=== PATIENT | female | born 1935 | race Caucasian/White ===

== ENCOUNTER 2018-04-12 01:09 | Inpatient (IN) | payer MEDICARE, OTHER ==
[2018-04-12] VITALS (16 sets, daily range): BP systolic 124–155; BP diastolic 52–89
[~2018-04-12] VITALS: Ht 157.5 cm; Wt 59.0 kg
[~2018-04-12 01:09] MED LIST: IBUP-1985 PO
[2018-04-12] MEDS ORDERED: acetaminophen 325mg tablet PO ONE (02:00)
[2018-04-12] MEDS ORDERED: normal saline 1000ml 1,000 ML IV ONE (02:50)
[2018-04-12] MEDS ORDERED: LOSA25TA96 PO (03:00)
[2018-04-12] MEDS ORDERED: AMLO2.5T2 PO (03:00)
[2018-04-12 03:03] LABS: ALANINE AMINOTRANSFERASE 36 U/L (12-78); ALBUMIN 3.6 G/DL (3.4-5.0); ALBUMIN/GLOBULIN RATIO 1.2 (1.1-1.5); ALKALINE PHOSPHATASE 73 IU/L (46-116); ANION GAP 10 (8-16); ASPARTATE AMINO TRANSFERASE 41 U/L (10-37); BILIRUBIN,TOTAL 0.2 MG/DL (0.1-1.0); BLOOD UREA NITROGEN 20 MG/DL (7-18); BUN/CREATININE RATIO 18.5 (6.6-38.0); CALCIUM 8.3 MG/DL (8.5-10.1); CHLORIDE 106 MMOL/L (99-107); CREATININE 1.08 MG/DL (0.40-0.90); GLUCOSE 103 MG/DL (70-104); POTASSIUM 3.8 MMOL/L (3.5-5.1); SODIUM 138 MMOL/L (135-145); TOTAL CARBON DIOXIDE 21.6 MMOL/L (24-32); TOTAL PROTEIN 6.5 G/DL (6.4-8.2); eGFR 48 ML/MIN
[2018-04-12] MEDS: normal saline 1000ml 1,000 ML IV SCH ×2 (03:07→16:37)
[2018-04-12 03:10] LABS: BASOPHILS % (AUTO) 0.1 % (0-1); EOSINOPHILS # (AUTO) 0.3 X10'3 (0-0.9); EOSINOPHILS % (AUTO) 2.2 % (0-6); LYMPHOCYTES # (AUTO) 1.4 X10'3 (1.1-4.8); LYMPHOCYTES % (AUTO) 9.8 % (21-51); MEAN CORPUSCULAR HEMOGLOBIN 31.2 PG (27.0-31.0); MEAN CORPUSCULAR HGB CONC 34.2 % (33.0-36.5); MEAN CORPUSCULAR VOLUME 91.2 FL (78-98); MEAN PLATELET VOLUME 8.2 FL (7.4-10.4); MONOCYTES # (AUTO) 0.6 X10'3 (0-0.9); MONOCYTES % (AUTO) 4.4 % (2-12); NEUTROPHILS # (AUTO) 12.2 X10'3 (1.8-7.7); NEUTROPHILS % (AUTO) 83.5 % (42-75); PLATELET COUNT 269 X10'3 (140-440); RED BLOOD COUNT 3.51 X10'6 (4.20-5.60); RED CELL DISTRIBUTION WIDTH 14.7 % (11.5-14.5); WHITE BLOOD COUNT 14.7 X10'3 (4.5-11.0)
[2018-04-12] MEDS ORDERED: bacitracin 15gm ointment TP ONE (03:10)
[2018-04-12] MEDS ORDERED: mag hydrox/Alum hydrox/simeth 30ml oral suspension PO PRN (03:10)
[2018-04-12] MEDS ORDERED: magnesium hydroxide 30ml (MOM) UD suspension PO PRN (03:10)
[2018-04-12] MEDS ORDERED: acetaminophen 325mg tablet PO PRN (03:10)
[2018-04-12] MEDS ORDERED: ondansetron/PF 4mg/2ml inj IV PRN ×2 (03:10→14:40)
[2018-04-12] MEDS ORDERED: morphine 4 MG/ML inj SYRINge IV PRN ×3 (03:10→14:40)
[2018-04-12 04:25] LABS: CLARITY,URINE Clear (Clear); COLOR,URINE Yellow (Yellow); GLUCOSE, URINE Negative (Neg); KETONES,URINE Negative (Neg); LEUKOCYTE ESTERASE ,URINE Negative (Neg); NITRITES, URINE Negative (Neg); OCCULT BLOOD,URINE Negative (Neg); PH,URINE 6.5 (4.8-8.0); PROTEIN,URINE Negative (Neg)
[2018-04-12 04:26] LABS: UA COLLECTION TYPE FOLEY CATH
[2018-04-12] MEDS: morphine 4 MG/ML inj SYRINge IV PRN ×3 (04:31→16:38)
[2018-04-12] MEDS: amLODIPine 2.5mg tablet PO SCH (06:28)
[2018-04-12] MEDS: enoxaparin 40mg/0.4ml syringe SUBCUT SCH (06:28)
[2018-04-12] MEDS: losartan 25mg tablet PO SCH (06:28)
[2018-04-12 11:23] LABS: PARTIAL THROMBOPLASTIN TIME 26 SECONDS (22-32)
[2018-04-12] MEDS ORDERED: EPHEDRINE SULFATE/0.9% NACL/PF 50 MG/5 ML ML IJ ONE (12:22)
[2018-04-12] MEDS ORDERED: sevoflurane 250ml liquid IH ONE (12:22)
[2018-04-12] MEDS ORDERED: midazolam 2 mg/2 ml injection ONE (12:30)
[2018-04-12] MEDS ORDERED: fentaNYL/PF 50MCG/1 ML 2ML syringe ONE (12:30)
[2018-04-12] MEDS ORDERED: propofol inj 20 ML IV ONE (12:52)
[2018-04-12] MEDS ORDERED: LIDOcaine 2% (20mg/ml) 5ml vial ONE (12:52)
[2018-04-12] MEDS ORDERED: vancomycin 1,000mg inj ONE (12:52)
[2018-04-12] MEDS ORDERED: ceFAZolin 1000mg inj ONE ×2 (12:52)
[2018-04-12] MEDS: meperidine/PF 25mg/ml syringe IV PRN ×4 (14:20→16:12)
[2018-04-12] MEDS ORDERED: meperidine/PF 25mg/ml syringe ONE (14:38)
[2018-04-12] MEDS ORDERED: ringers solution, lacted 1,000 ML IV SCH (14:39)
[2018-04-12] MEDS ORDERED: proCHLORperazine 10 MG/2 ml inj IV PRN (14:40)
[2018-04-12] MEDS ORDERED: meperidine/PF 25mg/ml syringe IV PRN ×2 (14:40)
[2018-04-12] MEDS: CEFAZOLIN IV SCH ×2 (16:35→23:04)
[2018-04-12] MEDS: NORMAL SALINE IV SCH ×2 (16:35→23:04)
[2018-04-12] MEDS ORDERED: haloperidol lactate 5mg/ml inj IM PRN (18:35)
[2018-04-12] MEDS ORDERED: LORazepam 2 mg/ml vial IV PRN (18:35)
[2018-04-12] MEDS ORDERED: thiamine 100mg/ml 2ml inj. IV ONE (18:35)
[2018-04-12] MEDS ORDERED: dextrose 50%-water 50ml dispensing syringe IV PRN (18:35)
[2018-04-12] MEDS ORDERED: thiamine inj. 100 MG in normal saline 100ml IV soln 99 ML IV ONE (18:45)
[2018-04-12] MEDS: oxyCODONE/APAP 10/325mg tablet PO PRN ×2 (19:02→23:04)
[2018-04-13] MEDS: morphine 4 MG/ML inj SYRINge IV PRN (02:25)
[2018-04-13] MEDS: normal saline 1000ml 1,000 ML IV SCH ×3 (02:25→15:51)
[2018-04-13 02:27] VITALS: BP 116/69
[2018-04-13 02:39] LABS: BASOPHILS % (AUTO) 0.4 % (0-1); EOSINOPHILS # (AUTO) 0.1 X10'3 (0-0.9); EOSINOPHILS % (AUTO) 1.5 % (0-6); HEMATOCRIT 26.2 % (35.0-45.0); HEMOGLOBIN 8.9 g/dl (12.0-16.0); LYMPHOCYTES # (AUTO) 1.1 X10'3 (1.1-4.8); LYMPHOCYTES % (AUTO) 14.5 % (21-51); MEAN CORPUSCULAR HEMOGLOBIN 31.1 PG (27.0-31.0); MEAN CORPUSCULAR HGB CONC 34.1 % (33.0-36.5); MEAN CORPUSCULAR VOLUME 91.2 FL (78-98); MEAN PLATELET VOLUME 8.2 FL (7.4-10.4); MONOCYTES % (AUTO) 13.8 % (2-12); NEUTROPHILS # (AUTO) 5.1 X10'3 (1.8-7.7); NEUTROPHILS % (AUTO) 69.8 % (42-75); PLATELET COUNT 240 X10'3 (140-440); RED BLOOD COUNT 2.88 X10'6 (4.20-5.60); RED CELL DISTRIBUTION WIDTH 14.4 % (11.5-14.5); WHITE BLOOD COUNT 7.3 X10'3 (4.5-11.0)
[2018-04-13 02:48] LABS: PARTIAL THROMBOPLASTIN TIME 26 SECONDS (22-32); PROTHROMBIN TIME 10.1 SECONDS (9.0-12.0)
[2018-04-13 02:50] LABS: ALBUMIN 3.1 G/DL (3.4-5.0); ANION GAP 10 (8-16); ASPARTATE AMINO TRANSFERASE 24 U/L (10-37); BILIRUBIN,TOTAL 0.6 MG/DL (0.1-1.0); BLOOD UREA NITROGEN 16 MG/DL (7-18); BUN/CREATININE RATIO 16.2 (6.6-38.0); CALCIUM 7.9 MG/DL (8.5-10.1); CHLORIDE 104 MMOL/L (99-107); CREATININE 0.99 MG/DL (0.40-0.90); GLUCOSE 127 MG/DL (70-104); POTASSIUM 4.1 MMOL/L (3.5-5.1); SODIUM 137 MMOL/L (135-145); TOTAL CARBON DIOXIDE 22.6 MMOL/L (24-32); TOTAL PROTEIN 6.1 G/DL (6.4-8.2); eGFR 54 ML/MIN
[2018-04-13 02:51] LABS: ALANINE AMINOTRANSFERASE 27 U/L (12-78); ALKALINE PHOSPHATASE 59 IU/L (46-116)
[2018-04-13] MEDS: oxyCODONE/APAP 10/325mg tablet PO PRN ×3 (05:44→16:59)
[2018-04-13 07:00] VITALS: BP 140/53
[2018-04-13] MEDS: losartan 25mg tablet PO SCH (08:08)
[2018-04-13] MEDS: amLODIPine 2.5mg tablet PO SCH (08:08)
[2018-04-13] MEDS: enoxaparin 40mg/0.4ml syringe SUBCUT SCH (08:09)
[2018-04-13] MEDS: ceFAZolin inj. 1,000 MG in normal saline 100ml IV soln 100 ML IV SCH ×3 (08:13→23:18)
[2018-04-13 10:00] VITALS: BP 117/65
[2018-04-13] MEDS: LORazepam 2 mg/ml vial IV PRN (16:59)
[2018-04-13 19:00] VITALS: BP 133/56
[2018-04-13] MEDS: lactobacillus rhamnosus 10,000 MMU CELLS/CAPSULE PO SCH (20:00)
[2018-04-13 22:00] VITALS: BP 124/46
[2018-04-14] MEDS: oxyCODONE/APAP 10/325mg tablet PO PRN ×2 (01:18→19:11)
[2018-04-14] MEDS: normal saline 1000ml 1,000 ML IV SCH (01:18)
[2018-04-14] MEDS: LORazepam 2 mg/ml vial IV PRN ×2 (03:45→19:11)
[2018-04-14 05:57] LABS: BASOPHILS % (AUTO) 0.6 % (0-1); EOSINOPHILS # (AUTO) 0.1 X10'3 (0-0.9); EOSINOPHILS % (AUTO) 1.8 % (0-6); HEMOGLOBIN 7.6 g/dl (12.0-16.0); LYMPHOCYTES # (AUTO) 0.7 X10'3 (1.1-4.8); LYMPHOCYTES % (AUTO) 9.3 % (21-51); MEAN CORPUSCULAR HEMOGLOBIN 31.3 PG (27.0-31.0); MEAN CORPUSCULAR HGB CONC 34.6 % (33.0-36.5); MEAN CORPUSCULAR VOLUME 90.4 FL (78-98); MEAN PLATELET VOLUME 8.1 FL (7.4-10.4); MONOCYTES # (AUTO) 0.9 X10'3 (0-0.9); MONOCYTES % (AUTO) 12.1 % (2-12); NEUTROPHILS # (AUTO) 5.4 X10'3 (1.8-7.7); NEUTROPHILS % (AUTO) 76.2 % (42-75); PLATELET COUNT 198 X10'3 (140-440); RED BLOOD COUNT 2.44 X10'6 (4.20-5.60); RED CELL DISTRIBUTION WIDTH 13.9 % (11.5-14.5); WHITE BLOOD COUNT 7.1 X10'3 (4.5-11.0)
[2018-04-14 06:00] VITALS: BP 131/53
[2018-04-14 06:07] LABS: PARTIAL THROMBOPLASTIN TIME 28 SECONDS (22-32)
[2018-04-14 06:18] LABS: ALANINE AMINOTRANSFERASE 21 U/L (12-78); ALBUMIN 2.8 G/DL (3.4-5.0); ALBUMIN/GLOBULIN RATIO 0.9 (1.1-1.5); ALKALINE PHOSPHATASE 55 IU/L (46-116); ANION GAP 7 (8-16); ASPARTATE AMINO TRANSFERASE 30 U/L (10-37); BILIRUBIN,TOTAL 0.6 MG/DL (0.1-1.0); BLOOD UREA NITROGEN 8 MG/DL (7-18); BUN/CREATININE RATIO 12.5 (6.6-38.0); CHLORIDE 104 MMOL/L (99-107); CREATININE 0.64 MG/DL (0.40-0.90); GLUCOSE 101 MG/DL (70-104); POTASSIUM 3.7 MMOL/L (3.5-5.1); SODIUM 135 MMOL/L (135-145); TOTAL CARBON DIOXIDE 24.3 MMOL/L (24-32); TOTAL PROTEIN 5.9 G/DL (6.4-8.2); eGFR 89 ML/MIN
[2018-04-14] MEDS: enoxaparin 40mg/0.4ml syringe SUBCUT SCH (08:00)
[2018-04-14] MEDS: lactobacillus rhamnosus 10,000 MMU CELLS/CAPSULE PO SCH ×2 (08:12→19:11)
[2018-04-14] MEDS: ceFAZolin inj. 1,000 MG in normal saline 100ml IV soln 100 ML IV SCH ×2 (08:12→15:55)
[2018-04-14] MEDS: amLODIPine 2.5mg tablet PO SCH (08:12)
[2018-04-14] MEDS: losartan 25mg tablet PO SCH (08:12)
[2018-04-14 10:00] VITALS: BP 139/59
[2018-04-14] MEDS: nicotine 21mg patch - 24 hr TD SCH (10:20)
[2018-04-14 11:21] LABS: HEMOGLOBIN 7.8 g/dl (12.0-16.0); MEAN CORPUSCULAR HGB CONC 34.1 % (33.0-36.5); MEAN CORPUSCULAR VOLUME 90.7 FL (78-98); MEAN PLATELET VOLUME 7.9 FL (7.4-10.4); PLATELET COUNT 220 X10'3 (140-440); RED BLOOD COUNT 2.53 X10'6 (4.20-5.60); RED CELL DISTRIBUTION WIDTH 13.9 % (11.5-14.5); WHITE BLOOD COUNT 7.4 X10'3 (4.5-11.0)
[2018-04-14 18:00] VITALS: BP 147/61
[2018-04-14 22:00] VITALS: BP 129/61
[2018-04-14] MEDS ORDERED: normal saline 1000ml 1,000 ML IV SCH (22:15)
[2018-04-15] VITALS (10 sets, daily range): BP systolic 88–152; BP diastolic 46–76
[2018-04-15] MEDS: ceFAZolin 1GM/D5W- ADD-VANTAGE 50 ML IV SCH ×3 (00:08→17:31)
[2018-04-15 06:51] LABS: BASOPHILS % (AUTO) 0.4 % (0-1); EOSINOPHILS # (AUTO) 0.1 X10'3 (0-0.9); EOSINOPHILS % (AUTO) 1.3 % (0-6); HEMOGLOBIN 7.2 g/dl (12.0-16.0); LYMPHOCYTES # (AUTO) 0.7 X10'3 (1.1-4.8); LYMPHOCYTES % (AUTO) 9.1 % (21-51); MEAN CORPUSCULAR HEMOGLOBIN 31.9 PG (27.0-31.0); MEAN CORPUSCULAR HGB CONC 35.2 % (33.0-36.5); MEAN CORPUSCULAR VOLUME 90.6 FL (78-98); MEAN PLATELET VOLUME 8.6 FL (7.4-10.4); MONOCYTES # (AUTO) 0.7 X10'3 (0-0.9); MONOCYTES % (AUTO) 9.5 % (2-12); NEUTROPHILS # (AUTO) 5.8 X10'3 (1.8-7.7); NEUTROPHILS % (AUTO) 79.7 % (42-75); PLATELET COUNT 208 X10'3 (140-440); RED BLOOD COUNT 2.25 X10'6 (4.20-5.60); RED CELL DISTRIBUTION WIDTH 13.9 % (11.5-14.5); WHITE BLOOD COUNT 7.2 X10'3 (4.5-11.0)
[2018-04-15 06:55] LABS: HEMATOCRIT 20.4 % (35.0-45.0)
[2018-04-15 07:10] LABS: INR 0.9 INR; PARTIAL THROMBOPLASTIN TIME 28 SECONDS (22-32); PROTHROMBIN TIME 9.6 SECONDS (9.0-12.0)
[2018-04-15 07:11] LABS: ALANINE AMINOTRANSFERASE 21 U/L (12-78); ALBUMIN 2.6 G/DL (3.4-5.0); ALBUMIN/GLOBULIN RATIO 0.8 (1.1-1.5); ALKALINE PHOSPHATASE 50 IU/L (46-116); ANION GAP 11 (8-16); ASPARTATE AMINO TRANSFERASE 32 U/L (10-37); BILIRUBIN,TOTAL 0.8 MG/DL (0.1-1.0); BLOOD UREA NITROGEN 8 MG/DL (7-18); BUN/CREATININE RATIO 13.1 (6.6-38.0); CALCIUM 8.4 MG/DL (8.5-10.1); CHLORIDE 100 MMOL/L (99-107); CREATININE 0.61 MG/DL (0.40-0.90); GLUCOSE 99 MG/DL (70-104); SODIUM 134 MMOL/L (135-145); TOTAL CARBON DIOXIDE 23.1 MMOL/L (24-32); TOTAL PROTEIN 5.9 G/DL (6.4-8.2); eGFR > 90 ML/MIN
[2018-04-15 07:17] LABS: POTASSIUM 2.8 MMOL/L (3.5-5.1)
[2018-04-15] MEDS ORDERED: potassium Cl 20 mEq SR tablet PO PRN (07:20)
[2018-04-15] MEDS ORDERED: potassium Cl 40MEQ/NS 500ml 500 ML IV PRN ×2 (07:20)
[2018-04-15] MEDS: enoxaparin 40mg/0.4ml syringe SUBCUT SCH (07:49)
[2018-04-15] MEDS: losartan 25mg tablet PO SCH (07:52)
[2018-04-15] MEDS: amLODIPine 2.5mg tablet PO SCH (07:52)
[2018-04-15] MEDS: nicotine 21mg patch - 24 hr TD SCH (07:58)
[2018-04-15] MEDS: K and/or MAG REPLACEMENT MC SCH (07:58)
[2018-04-15] MEDS: lactobacillus rhamnosus 10,000 MMU CELLS/CAPSULE PO SCH ×2 (07:58→20:07)
[2018-04-15] MEDS: potassium Cl 20 mEq SR tablet PO PRN ×3 (07:59→20:07)
[2018-04-15] MEDS ORDERED: furosemide 40mg/4ml inj IV ONE (09:50)
[2018-04-15] MEDS: LORazepam 2 mg/ml vial IV PRN (20:19)
[2018-04-16] MEDS: ceFAZolin 1GM/D5W- ADD-VANTAGE 50 ML IV SCH ×3 (00:30→08:00)
[2018-04-16] MEDS: oxyCODONE/APAP 10/325mg tablet PO PRN ×3 (03:10→16:40)
[2018-04-16 05:00] VITALS: BP 138/68
[2018-04-16 05:54] LABS: BASOPHILS % (AUTO) 0.3 % (0-1); EOSINOPHILS # (AUTO) 0.2 X10'3 (0-0.9); EOSINOPHILS % (AUTO) 2.8 % (0-6); HEMATOCRIT 30.2 % (35.0-45.0); HEMOGLOBIN 10.6 g/dl (12.0-16.0); LYMPHOCYTES # (AUTO) 0.6 X10'3 (1.1-4.8); LYMPHOCYTES % (AUTO) 9.8 % (21-51); MEAN CORPUSCULAR VOLUME 88.5 FL (78-98); MONOCYTES # (AUTO) 0.7 X10'3 (0-0.9); MONOCYTES % (AUTO) 11.9 % (2-12); NEUTROPHILS # (AUTO) 4.7 X10'3 (1.8-7.7); NEUTROPHILS % (AUTO) 75.2 % (42-75); PLATELET COUNT 236 X10'3 (140-440); RED BLOOD COUNT 3.42 X10'6 (4.20-5.60); RED CELL DISTRIBUTION WIDTH 13.9 % (11.5-14.5); WHITE BLOOD COUNT 6.3 X10'3 (4.5-11.0)
[2018-04-16 06:02] LABS: INR 0.9 INR; PROTHROMBIN TIME 9.6 SECONDS (9.0-12.0)
[2018-04-16 06:07] LABS: ALANINE AMINOTRANSFERASE 19 U/L (12-78); ALBUMIN 2.6 G/DL (3.4-5.0); ALBUMIN/GLOBULIN RATIO 0.7 (1.1-1.5); ALKALINE PHOSPHATASE 54 IU/L (46-116); ANION GAP 10 (8-16); ASPARTATE AMINO TRANSFERASE 27 U/L (10-37); BILIRUBIN,TOTAL 1.1 MG/DL (0.1-1.0); BLOOD UREA NITROGEN 12 MG/DL (7-18); BUN/CREATININE RATIO 18.5 (6.6-38.0); CALCIUM 8.4 MG/DL (8.5-10.1); CHLORIDE 103 MMOL/L (99-107); CREATININE 0.65 MG/DL (0.40-0.90); GLUCOSE 115 MG/DL (70-104); POTASSIUM 3.7 MMOL/L (3.5-5.1); SODIUM 136 MMOL/L (135-145); TOTAL CARBON DIOXIDE 23.5 MMOL/L (24-32); TOTAL PROTEIN 6.1 G/DL (6.4-8.2); eGFR 87 ML/MIN
[2018-04-16] MEDS: K and/or MAG REPLACEMENT MC SCH (07:13)
[2018-04-16] MEDS: nicotine 21mg patch - 24 hr TD SCH (07:20)
[2018-04-16] MEDS: amLODIPine 2.5mg tablet PO SCH (07:20)
[2018-04-16] MEDS: lactobacillus rhamnosus 10,000 MMU CELLS/CAPSULE PO SCH (07:20)
[2018-04-16] MEDS: losartan 25mg tablet PO SCH (07:20)
[2018-04-16] MEDS: enoxaparin 40mg/0.4ml syringe SUBCUT SCH (07:21)
[2018-04-16 10:00] VITALS: BP 139/62
[2018-04-16] MEDS ORDERED: oxyCODONE/APAP 10/325mg tablet PO ONE (11:05)
[2018-04-16] MEDS ORDERED: diphenhydrAMINE 25mg capsule PO PRN (11:50)
== END 2018-04-16 17:10 | DRG 481 ==
LOC: ER 01:09 → ED HOLD 03:07 → ORTHO 4S 15:28
PROVIDERS: ADMIT Internal Medicine; ATTEND Internal Medicine
PROC: 0QS606Z Reposition Right Upper Femur with Intramedullary Internal Fixation Device, Open Approach (ICD-10-PCS; principal; 2018-04-12 12:22)
PROC: 30233N1 Transfusion of Nonautologous Red Blood Cells into Peripheral Vein, Percutaneous Approach (ICD-10-PCS; 2018-04-15)
DX: S72.21XA Displaced subtrochanteric fracture of right femur, initial encounter for closed fracture (principal); D62 Acute posthemorrhagic anemia; N17.9 Acute kidney failure, unspecified; E86.0 Dehydration; J44.9 Chronic obstructive pulmonary disease, unspecified; M96.840 Postprocedural hematoma of a musculoskeletal structure following a musculoskeletal system procedure; F10.10 Alcohol abuse, uncomplicated; E87.6 Hypokalemia; F17.200 Nicotine dependence, unspecified, uncomplicated; I10 Essential (primary) hypertension; W01.0XXA Fall on same level from slipping, tripping and stumbling without subsequent striking against object, initial encounter; Z85.3 Personal history of malignant neoplasm of breast; Z90.710 Acquired absence of both cervix and uterus; Y93.89 Activity, other specified; Y92.098 Other place in other non-institutional residence as the place of occurrence of the external cause; Y99.8 Other external cause status; Z88.0 Allergy status to penicillin; Z79.899 Other long term (current) drug therapy; Y83.8 Other surgical procedures as the cause of abnormal reaction of the patient, or of later complication, without mention of misadventure at the time of the procedure; Y79.3 Surgical instruments, materials and orthopedic devices (including sutures) associated with adverse incidents; Y92.238 Other place in hospital as the place of occurrence of the external cause
CPT/HCPCS: 36415; 71045; 73502; 73552; 76000; 80053; 81003; 82948; 85025; 85027; 85610; 85730; 86885; 86900; 86901; 86920; 87070; 93005; 93306; 96360; 97110; 97116; 97162; 97530; 97535; 99285; A6213; A6255; A6258; A6449; A7000; J0690; J1650; J1940; J2001; J2060; J2175; J2250; J2270; J2704; J3010; J3370; J3411; J7030; J7120; P9016; Q0163

== ENCOUNTER 2018-04-29 15:12 | Emergency (ER) | payer MEDICARE, MEDICAID ==
[~2018-04-29] VITALS: Ht 165.1 cm; Wt 55.0 kg
[~2018-04-29 15:12] MED LIST changes: +AMLO2.5T2 PO; +LOSA25TA96 PO
[2018-04-29] MEDS ORDERED: morphine 4 MG/ML inj SYRINge IV ONE (15:25)
[2018-04-29 16:25] LABS: BASOPHILS % (AUTO) 0.5 % (0-1); EOSINOPHILS # (AUTO) 0.3 X10'3 (0-0.9); HEMATOCRIT 31.1 % (35.0-45.0); HEMOGLOBIN 10.4 g/dl (12.0-16.0); LYMPHOCYTES # (AUTO) 1.4 X10'3 (1.1-4.8); LYMPHOCYTES % (AUTO) 15.5 % (21-51); MEAN CORPUSCULAR HEMOGLOBIN 30.2 PG (27.0-31.0); MEAN CORPUSCULAR HGB CONC 33.3 % (33.0-36.5); MEAN CORPUSCULAR VOLUME 90.8 FL (78-98); MEAN PLATELET VOLUME 7.5 FL (7.4-10.4); MONOCYTES # (AUTO) 0.9 X10'3 (0-0.9); MONOCYTES % (AUTO) 9.9 % (2-12); NEUTROPHILS # (AUTO) 6.5 X10'3 (1.8-7.7); NEUTROPHILS % (AUTO) 71.1 % (42-75); PLATELET COUNT 705 X10'3 (140-440); RED BLOOD COUNT 3.43 X10'6 (4.20-5.60); RED CELL DISTRIBUTION WIDTH 13.3 % (11.5-14.5); WHITE BLOOD COUNT 9.1 X10'3 (4.5-11.0)
[2018-04-29 16:56] LABS: ALANINE AMINOTRANSFERASE 27 U/L (12-78); ALBUMIN 3.1 G/DL (3.4-5.0); ALBUMIN/GLOBULIN RATIO 0.8 (1.1-1.5); ALKALINE PHOSPHATASE 189 IU/L (46-116); ANION GAP 9 (8-16); ASPARTATE AMINO TRANSFERASE 17 U/L (10-37); BILIRUBIN,TOTAL 0.4 MG/DL (0.1-1.0); BLOOD UREA NITROGEN 25 MG/DL (7-18); BUN/CREATININE RATIO 23.1 (6.6-38.0); CALCIUM 8.8 MG/DL (8.5-10.1); CHLORIDE 100 MMOL/L (99-107); CREATININE 1.08 MG/DL (0.40-0.90); GLUCOSE 115 MG/DL (70-104); POTASSIUM 4.4 MMOL/L (3.5-5.1); SODIUM 136 MMOL/L (135-145); TOTAL CARBON DIOXIDE 26.7 MMOL/L (24-32); eGFR 48 ML/MIN
[2018-04-29 18:09] VITALS: BP 155/69
== END 2018-04-29 18:11 ==
LOC: ER 15:12
DX: M25.551 Pain in right hip (principal); F03.90 Unspecified dementia, unspecified severity, without behavioral disturbance, psychotic disturbance, mood disturbance, and anxiety; E86.0 Dehydration; I10 Essential (primary) hypertension; J44.9 Chronic obstructive pulmonary disease, unspecified; Z96.641 Presence of right artificial hip joint; Z85.3 Personal history of malignant neoplasm of breast; Z90.710 Acquired absence of both cervix and uterus; Z98.890 Other specified postprocedural states; Z60.2 Problems related to living alone; Z88.0 Allergy status to penicillin; Z79.899 Other long term (current) drug therapy
CPT/HCPCS: 36415; 71045; 73502; 80053; 83605; 85025; 87040; 96374; 99285; J2270

== ENCOUNTER 2018-05-12 10:48 | Inpatient (IN) | payer MEDICARE, MEDICAID ==
[~2018-05-12] VITALS: Ht 165.1 cm; Wt 52.3 kg
[2018-05-12 11:22] LABS: BASOPHILS % (AUTO) 0.1 % (0-1); EOSINOPHILS % (AUTO) 0 % (0-6); HEMATOCRIT 32.7 % (35.0-45.0); HEMOGLOBIN 11.3 g/dl (12.0-16.0); LYMPHOCYTES # (AUTO) 0.5 X10'3 (1.1-4.8); LYMPHOCYTES % (AUTO) 2.5 % (21-51); MEAN CORPUSCULAR HEMOGLOBIN 30.8 PG (27.0-31.0); MEAN CORPUSCULAR HGB CONC 34.6 % (33.0-36.5); MEAN CORPUSCULAR VOLUME 89.2 FL (78-98); MEAN PLATELET VOLUME 7.5 FL (7.4-10.4); MONOCYTES # (AUTO) 1.1 X10'3 (0-0.9); MONOCYTES % (AUTO) 5.1 % (2-12); NEUTROPHILS # (AUTO) 20.3 X10'3 (1.8-7.7); NEUTROPHILS % (AUTO) 92.3 % (42-75); PLATELET COUNT 497 X10'3 (140-440); RED BLOOD COUNT 3.67 X10'6 (4.20-5.60); RED CELL DISTRIBUTION WIDTH 13.7 % (11.5-14.5); WHITE BLOOD COUNT 21.9 X10'3 (4.5-11.0)
[2018-05-12] MEDS ORDERED: diltiazem 30mg tablet PO ONE ×2 (11:25→12:45)
[2018-05-12 11:38] LABS: ALANINE AMINOTRANSFERASE 21 U/L (12-78); ALBUMIN 2.2 G/DL (3.4-5.0); ALBUMIN/GLOBULIN RATIO 0.4 (1.1-1.5); ALKALINE PHOSPHATASE 182 IU/L (46-116); ANION GAP 11 (8-16); ASPARTATE AMINO TRANSFERASE 18 U/L (10-37); BILIRUBIN,TOTAL 0.7 MG/DL (0.1-1.0); BLOOD UREA NITROGEN 25 MG/DL (7-18); BUN/CREATININE RATIO 26.9 (6.6-38.0); CALCIUM 9.1 MG/DL (8.5-10.1); CHLORIDE 94 MMOL/L (99-107); CREATININE 0.93 MG/DL (0.40-0.90); GLUCOSE 217 MG/DL (70-104); SODIUM 131 MMOL/L (135-145); TOTAL CARBON DIOXIDE 25.6 MMOL/L (24-32); TOTAL PROTEIN 7.5 G/DL (6.4-8.2); eGFR 58 ML/MIN
[2018-05-12 11:44] LABS: MAGNESIUM 1.9 MG/DL (1.5-2.4)
[2018-05-12] MEDS ORDERED: normal saline 1000ML IV soln IVB ONE ×2 (12:15)
[2018-05-12] MEDS ORDERED: fentaNYL/PF 50MCG/1 ML 2ML syringe IV ONE (12:25)
[2018-05-12 12:37] LABS: D-DIMER 1.84 MG/L FEU (0-0.50)
[2018-05-12] MEDS ORDERED: iohexol 350MG/ML 100ml bottle IV ONE (12:47)
[2018-05-12] MEDS ORDERED: digoxin 250mcg/ml 2ml ampule IV ONE (13:00)
[2018-05-12] MEDS ORDERED: magnesium hydroxide 30ml (MOM) UD suspension PO PRN (13:45)
[2018-05-12] MEDS ORDERED: magnesium 4gm in 100ml NS 100 ML IV PRN (13:45)
[2018-05-12] MEDS ORDERED: magnesium/D5W IVPB 50 ML IV PRN (13:45)
[2018-05-12] MEDS ORDERED: potassium Cl 40MEQ/NS 500ml 500 ML IV PRN ×2 (13:45)
[2018-05-12] MEDS ORDERED: ondansetron/PF 4mg/2ml inj IV PRN (13:45)
[2018-05-12] MEDS ORDERED: potassium Cl 20 mEq SR tablet PO PRN ×2 (13:45)
[2018-05-12] MEDS ORDERED: ipratropium/albuterol 3ml nebule NEB PRN (13:45)
[2018-05-12] MEDS ORDERED: mag hydrox/Alum hydrox/simeth 30ml oral suspension PO PRN (13:45)
[2018-05-12] MEDS ORDERED: enoxaparin 50mg/0.5ml (from 3ml vial) syringe SUBCUT SCH (14:10)
[2018-05-12 16:28] VITALS: BP 113/46
[2018-05-12] MEDS ORDERED: LOSA25TA96 PO (16:49)
[2018-05-12] MEDS ORDERED: AMLO2.5T2 PO (16:49)
[2018-05-12] MEDS ORDERED: IBUP-1985 PO (16:50)
[2018-05-12 17:04] LABS: CLARITY,URINE CLEAR (Clear); COLOR,URINE YELLOW (Yellow); GLUCOSE, URINE NEGATIVE (Neg); KETONES,URINE NEGATIVE (Neg); LEUKOCYTE ESTERASE ,URINE NEGATIVE (Neg); NITRITES, URINE NEGATIVE (Neg); OCCULT BLOOD,URINE NEGATIVE (Neg); PH,URINE 7.5 (4.8-8.0); PROTEIN,URINE TRACE mg/dl (Neg); UROBILINOGEN,URINE 0.2 E.U/dL (0.2-1.0)
[2018-05-12] MEDS: enoxaparin 40mg/0.4ml syringe SUBCUT SCH (17:04)
[2018-05-12 17:07] LABS: UA COLLECTION TYPE CLN CATCH MIDSTREAM
[2018-05-12 17:14] LABS: RBC,URINE NONE SEEN /HPF (0-2); WBC,URINE 0-4 /HPF (0-4)
[2018-05-12 17:15] LABS: AMORPHOUS PHOSPHATES 1+; BACTERIA,URINE NONE SEEN /HPF (Neg); SQUAMOUS EPITHELIAL CELL,UR FEW /LPF (FEW)
[2018-05-12] MEDS ORDERED: vancomycin/NS 1 GM ADD-VANTAGE 250 ML IV ONE (18:10)
[2018-05-12 19:00] VITALS: BP 117/66
[2018-05-12 23:00] VITALS: BP 116/51
[2018-05-13 03:00] VITALS: BP 121/55
[2018-05-13 05:11] LABS: BASOPHILS % (AUTO) 0.2 % (0-1); EOSINOPHILS % (AUTO) 0 % (0-6); HEMATOCRIT 27.5 % (35.0-45.0); HEMOGLOBIN 9.5 g/dl (12.0-16.0); LYMPHOCYTES # (AUTO) 0.8 X10'3 (1.1-4.8); LYMPHOCYTES % (AUTO) 5.3 % (21-51); MEAN CORPUSCULAR HEMOGLOBIN 30.6 PG (27.0-31.0); MEAN CORPUSCULAR HGB CONC 34.5 % (33.0-36.5); MEAN CORPUSCULAR VOLUME 88.7 FL (78-98); MEAN PLATELET VOLUME 7.8 FL (7.4-10.4); MONOCYTES # (AUTO) 1.3 X10'3 (0-0.9); MONOCYTES % (AUTO) 9.4 % (2-12); NEUTROPHILS # (AUTO) 12.2 X10'3 (1.8-7.7); NEUTROPHILS % (AUTO) 85.1 % (42-75); PLATELET COUNT 352 X10'3 (140-440); RED CELL DISTRIBUTION WIDTH 13.6 % (11.5-14.5); WHITE BLOOD COUNT 14.3 X10'3 (4.5-11.0)
[2018-05-13 05:36] LABS: ALANINE AMINOTRANSFERASE 21 U/L (12-78); ALBUMIN 2.8 G/DL (3.4-5.0); ALBUMIN/GLOBULIN RATIO 0.8 (1.1-1.5); ALKALINE PHOSPHATASE 147 IU/L (46-116); ANION GAP 7 (8-16); ASPARTATE AMINO TRANSFERASE 23 U/L (10-37); BILIRUBIN,TOTAL 0.6 MG/DL (0.1-1.0); BLOOD UREA NITROGEN 22 MG/DL (7-18); BUN/CREATININE RATIO 26.2 (6.6-38.0); CHLORIDE 99 MMOL/L (99-107); CHOL/HDL RATIO 1.8 (0.00-4.99); CHOLESTEROL 92 MG/DL (0-200); CREATININE 0.84 MG/DL (0.40-0.90); GLUCOSE 125 MG/DL (70-104); HDL CHOLESTEROL 50 MG/DL (35-60); LDL CHOLESTEROL 42 MG/DL (50-100); POTASSIUM 4.4 MMOL/L (3.5-5.1); SODIUM 131 MMOL/L (135-145); TOTAL CARBON DIOXIDE 24.8 MMOL/L (24-32); TOTAL PROTEIN 6.4 G/DL (6.4-8.2); TRIGLYCERIDES 44 MG/DL (20-135); eGFR 65 ML/MIN
[2018-05-13] MEDS: ibuprofen 200mg tablet PO SCH ×3 (07:43→17:30)
[2018-05-13] MEDS: enoxaparin 40mg/0.4ml syringe SUBCUT SCH (07:44)
[2018-05-13] MEDS: K and/or MAG REPLACEMENT MC SCH (08:00)
[2018-05-13] MEDS ORDERED: LORazepam 2 mg/ml vial IV PRN ×2 (10:05→19:00)
[2018-05-13] MEDS: aspirin 81mg tablet.DR PO SCH (10:56)
[2018-05-13] MEDS: metoprolol tartrate 25mg tablet PO SCH ×2 (10:56→19:21)
[2018-05-13 11:00] VITALS: BP 115/61
[2018-05-13 15:00] VITALS: BP 110/48
[2018-05-13] MEDS: pantoprazole 40mg Tablet.DR PO SCH (15:40)
[2018-05-13 19:00] VITALS: BP 153/58
[2018-05-13] MEDS ORDERED: VANCOMYCIN 750MG IV in NS 250 ML IV SCH (19:00)
[2018-05-13] MEDS ORDERED: LORazepam 1 MG tablet PO PRN (19:00)
[2018-05-13] MEDS: lactobacillus rhamnosus 10,000 MMU CELLS/CAPSULE PO SCH (19:19)
[2018-05-13 23:00] VITALS: BP 132/58
[2018-05-14 03:00] VITALS: BP 127/58
[2018-05-14] MEDS: metoprolol tartrate 25mg tablet PO SCH (06:02)
[2018-05-14 06:09] LABS: ALANINE AMINOTRANSFERASE 29 U/L (12-78); ALBUMIN/GLOBULIN RATIO 0.7 (1.1-1.5); ALKALINE PHOSPHATASE 155 IU/L (46-116); ANION GAP 14 (8-16); ASPARTATE AMINO TRANSFERASE 21 U/L (10-37); BILIRUBIN,TOTAL 0.7 MG/DL (0.1-1.0); BLOOD UREA NITROGEN 20 MG/DL (7-18); BUN/CREATININE RATIO 26.7 (6.6-38.0); CALCIUM 9.1 MG/DL (8.5-10.1); CHLORIDE 96 MMOL/L (99-107); CREATININE 0.75 MG/DL (0.40-0.90); GLUCOSE 87 MG/DL (70-104); MAGNESIUM 1.8 MG/DL (1.5-2.4); POTASSIUM 3.7 MMOL/L (3.5-5.1); SODIUM 132 MMOL/L (135-145); TOTAL CARBON DIOXIDE 21.9 MMOL/L (24-32); TOTAL PROTEIN 7.2 G/DL (6.4-8.2); eGFR 74 ML/MIN
[2018-05-14 07:08] LABS: BASOPHILS % (AUTO) 0.3 % (0-1); EOSINOPHILS % (AUTO) 0.1 % (0-6); HEMATOCRIT 29.6 % (35.0-45.0); HEMOGLOBIN 10.4 g/dl (12.0-16.0); LYMPHOCYTES # (AUTO) 0.7 X10'3 (1.1-4.8); LYMPHOCYTES % (AUTO) 5.1 % (21-51); MEAN CORPUSCULAR HEMOGLOBIN 30.9 PG (27.0-31.0); MEAN CORPUSCULAR HGB CONC 35.1 % (33.0-36.5); MEAN PLATELET VOLUME 7.7 FL (7.4-10.4); MONOCYTES # (AUTO) 1.1 X10'3 (0-0.9); MONOCYTES % (AUTO) 8.4 % (2-12); NEUTROPHILS % (AUTO) 86.1 % (42-75); PLATELET COUNT 404 X10'3 (140-440); RED BLOOD COUNT 3.36 X10'6 (4.20-5.60); RED CELL DISTRIBUTION WIDTH 13.5 % (11.5-14.5); WHITE BLOOD COUNT 12.7 X10'3 (4.5-11.0)
[2018-05-14 07:12] VITALS: BP 137/60
[2018-05-14] MEDS: K and/or MAG REPLACEMENT MC SCH (08:00)
[2018-05-14] MEDS: aspirin 81mg tablet.DR PO SCH (08:48)
[2018-05-14] MEDS: ibuprofen 200mg tablet PO SCH ×2 (08:48→12:30)
[2018-05-14] MEDS: lactobacillus rhamnosus 10,000 MMU CELLS/CAPSULE PO SCH (08:48)
[2018-05-14] MEDS: enoxaparin 40mg/0.4ml syringe SUBCUT SCH (08:49)
[2018-05-14] MEDS: pantoprazole 40mg Tablet.DR PO SCH (09:55)
[2018-05-14 11:00] VITALS: BP 107/55
[2018-05-14] MEDS ORDERED: METO-395 PO (14:11)
[2018-05-14] MEDS ORDERED: OMEP40CA37 PO (14:11)
[2018-05-14] MEDS ORDERED: APIX5TAB3 PO (14:11)
[2018-05-14] MEDS ORDERED: HYDR-569 PO (14:16)
[2018-05-14 15:00] VITALS: BP 112/47
== END 2018-05-14 16:35 | disposition home health service (06) | DRG 315 ==
LOC: ER 10:48 → ED HOLD 13:43 → PCU 3S 15:50
PROVIDERS: ADMIT Family Medicine; ATTEND Family Medicine
DX: I30.9 Acute pericarditis, unspecified (principal); E87.2 Acidosis; E44.0 Moderate protein-calorie malnutrition; Z68.1 Body mass index [BMI] 19.9 or less, adult; I48.91 Unspecified atrial fibrillation; D72.829 Elevated white blood cell count, unspecified; I10 Essential (primary) hypertension; R79.1 Abnormal coagulation profile; J06.9 Acute upper respiratory infection, unspecified; F03.90 Unspecified dementia, unspecified severity, without behavioral disturbance, psychotic disturbance, mood disturbance, and anxiety; I25.10 Atherosclerotic heart disease of native coronary artery without angina pectoris; J44.9 Chronic obstructive pulmonary disease, unspecified; F17.210 Nicotine dependence, cigarettes, uncomplicated; Z66 Do not resuscitate; Z90.10 Acquired absence of unspecified breast and nipple; Z88.0 Allergy status to penicillin; Z88.8 Allergy status to other drugs, medicaments and biological substances; Z88.6 Allergy status to analgesic agent; Z90.710 Acquired absence of both cervix and uterus; Z79.01 Long term (current) use of anticoagulants; Z87.81 Personal history of (healed) traumatic fracture; Z85.3 Personal history of malignant neoplasm of breast; Z71.6 Tobacco abuse counseling
CPT/HCPCS: 36415; 70450; 71045; 71275; 80053; 80061; 81001; 83605; 83735; 83880; 84145; 84443; 84484; 85025; 85379; 85651; 86140; 87040; 87070; 93005; 93308; 94640; 94760; 96361; 96374; 97116; 97162; 97530; 99285; A4414; A6212; A6213; A6258; J1650; J2060; J3010; J3370; J7030; Q9967

== ENCOUNTER 2018-09-09 09:44 | Outpatient (CLI) | payer MEDICARE, MEDICAID ==
[2018-09-09 09:43] VITALS: BP 171/95
[~2018-09-09 09:44] MED LIST changes: -AMLO2.5T2 PO; +APIX5TAB3 PO; +HYDR-4383 PO; +METO-395 PO
== END 2018-09-09 10:19 | disposition home or self-care (01) ==
LOC: ORTHO 09:44
PROVIDERS: ATTEND Nurse Practitioner Family
DX: S72.141G Displaced intertrochanteric fracture of right femur, subsequent encounter for closed fracture with delayed healing (principal); I10 Essential (primary) hypertension; J44.9 Chronic obstructive pulmonary disease, unspecified; F17.200 Nicotine dependence, unspecified, uncomplicated; Z88.0 Allergy status to penicillin; Z60.2 Problems related to living alone; Z88.5 Allergy status to narcotic agent; Z79.899 Other long term (current) drug therapy; Z88.8 Allergy status to other drugs, medicaments and biological substances; X58.XXXD Exposure to other specified factors, subsequent encounter
CPT/HCPCS: 73552; 99213

== ENCOUNTER 2018-09-18 11:43 | Outpatient (CLI) | payer MEDICARE, MEDICAID ==
[2018-09-18 11:48] VITALS: BP 161/81
== END 2018-09-18 12:44 | disposition home or self-care (01) ==
LOC: ORTHO 11:43
PROVIDERS: ATTEND Nurse Practitioner Family
DX: S72.141G Displaced intertrochanteric fracture of right femur, subsequent encounter for closed fracture with delayed healing (principal); I10 Essential (primary) hypertension; J44.9 Chronic obstructive pulmonary disease, unspecified; F17.200 Nicotine dependence, unspecified, uncomplicated; Z88.0 Allergy status to penicillin; Z88.5 Allergy status to narcotic agent; Z79.899 Other long term (current) drug therapy; Z90.710 Acquired absence of both cervix and uterus; Z85.3 Personal history of malignant neoplasm of breast; Z60.2 Problems related to living alone; W19.XXXD Unspecified fall, subsequent encounter
CPT/HCPCS: 73552; 99213

== ENCOUNTER 2018-09-24 09:06 | Outpatient (CLI) | payer MEDICARE, MEDICAID ==
[2018-09-24 09:05] VITALS: BP 151/86
== END 2018-09-24 09:52 | disposition home or self-care (01) ==
LOC: ORTHO 09:06
PROVIDERS: ATTEND Nurse Practitioner Family
DX: M17.11 Unilateral primary osteoarthritis, right knee (principal); M11.261 Other chondrocalcinosis, right knee; M25.461 Effusion, right knee; M25.761 Osteophyte, right knee; F17.200 Nicotine dependence, unspecified, uncomplicated; I10 Essential (primary) hypertension; I48.91 Unspecified atrial fibrillation; J43.9 Emphysema, unspecified; G89.29 Other chronic pain; Z85.3 Personal history of malignant neoplasm of breast; Z60.2 Problems related to living alone; Z90.11 Acquired absence of right breast and nipple; Z79.899 Other long term (current) drug therapy; Z90.710 Acquired absence of both cervix and uterus; Z88.0 Allergy status to penicillin; Z88.5 Allergy status to narcotic agent
CPT/HCPCS: 73560; 99215

== ENCOUNTER 2019-11-17 09:16 | Emergency (ER) | payer MEDICARE, MEDICAID ==
[~2019-11-17] VITALS: Ht 160 cm; Wt 44.0 kg
[2019-11-17] MEDS ORDERED: normal saline 1000ML IV soln IVB ONE (09:35)
--- NOTE | 2019-11-17 09:43 | NUR ---
TO CT SCAN
[2019-11-17] MEDS ORDERED: aspirin 81mg tab.chew PO ONE (10:30)
[2019-11-17 10:48] LABS: BASOPHILS # (AUTO) 0.1 X10'3 (0-0.2); EOSINOPHILS # (AUTO) 0.1 X10'3 (0-0.9); EOSINOPHILS % (AUTO) 1.4 % (0-6); HEMATOCRIT 30.5 % (35.0-45.0); HEMOGLOBIN 10.2 g/dl (12.0-16.0); LYMPHOCYTES # (AUTO) 0.7 X10'3 (1.1-4.8); LYMPHOCYTES % (AUTO) 8.5 % (21-51); MEAN CORPUSCULAR HEMOGLOBIN 28.1 PG (27.0-31.0); MEAN CORPUSCULAR HGB CONC 33.5 g/dL (33.0-36.5); MEAN CORPUSCULAR VOLUME 84.1 FL (78-98); MEAN PLATELET VOLUME 7.9 FL (7.4-10.4); MONOCYTES # (AUTO) 0.7 X10'3 (0-0.9); MONOCYTES % (AUTO) 7.6 % (2-12); NEUTROPHILS # (AUTO) 7.2 X10'3 (1.8-7.7); NEUTROPHILS % (AUTO) 81.5 % (42-75); PLATELET COUNT 383 X10'3 (140-440); RED BLOOD COUNT 3.63 X10'6 (4.20-5.60); RED CELL DISTRIBUTION WIDTH 16.6 % (11.5-14.5); WHITE BLOOD COUNT 8.8 X10'3 (4.5-11.0)
[2019-11-17 10:53] LABS: ALANINE AMINOTRANSFERASE 16 U/L (12-78); ALBUMIN 3.4 G/DL (3.4-5.0); ALBUMIN/GLOBULIN RATIO 0.7 (1.1-1.5); ALKALINE PHOSPHATASE 90 IU/L (46-116); ANION GAP 8 (8-16); ASPARTATE AMINO TRANSFERASE 14 U/L (10-37); BILIRUBIN,TOTAL 0.3 MG/DL (0.1-1.0); BLOOD UREA NITROGEN 30 MG/DL (7-18); CALCIUM 9.1 MG/DL (8.5-10.1); CHLORIDE 102 MMOL/L (99-107); CREATININE 1.07 MG/DL (0.40-0.90); GLUCOSE 99 MG/DL (70-104); POTASSIUM 4.4 MMOL/L (3.5-5.1); SODIUM 136 MMOL/L (135-145); TOTAL CARBON DIOXIDE 25.7 MMOL/L (24-32); TOTAL PROTEIN 8.2 G/DL (6.4-8.2); eGFR 49 ML/MIN
--- NOTE | 2019-11-17 11:00 | NUR ---
walked by room and daughter at bedside talking with patient about "half of her social security money" per daughter at bedside: 4 relatives live with patient. When I expressed my concern over the patient having 2 falls within 4 days, the daughter stated "Yeah, she falls" Patient has had multiple fractures. Patient is being visited by home health for her wounds left leg lower leg: cdi dressing and right lower leg appears splinted Daughter does not know mother's pmd or the name of the home health agency.
[2019-11-17 11:05] LABS: CLARITY,URINE CLEAR (Clear); COLOR,URINE YELLOW (Yellow); GLUCOSE, URINE NEGATIVE (Neg); KETONES,URINE NEGATIVE (Neg); LEUKOCYTE ESTERASE ,URINE NEGATIVE (Neg); NITRITES, URINE NEGATIVE (Neg); OCCULT BLOOD,URINE NEGATIVE (Neg); PROTEIN,URINE TRACE mg/dl (Neg); UROBILINOGEN,URINE 0.2 E.U/dL (0.2-1.0)
[2019-11-17 11:06] LABS: ETHANOL < 0.010 GM/DL (0.0-0.010)
[2019-11-17 11:07] LABS: UA COLLECTION TYPE STRAIGHT CATH
--- NOTE | 2019-11-17 11:07 | NUR ---
spoke to [facility]
[2019-11-17 11:14] LABS: BACTERIA,URINE 1+ /HPF (Neg); MUCUS STRANDS FEW /LPF (Neg); RBC,URINE 0-2 /HPF (0-2); SQUAMOUS EPITHELIAL CELL,UR FEW /LPF (FEW)
--- NOTE | 2019-11-17 11:31 | NUR ---
JOSÉ MANUEL, FABRICATION SUPERVISOR AT BEDSIDE
[2019-11-17] MEDS ORDERED: BACDS PO (11:34)
[2019-11-17 12:39] VITALS: BP 169/76
== END 2019-11-17 12:56 | disposition home or self-care (01) ==
LOC: ER 09:16
DX: N39.0 Urinary tract infection, site not specified (principal); R07.89 Other chest pain; R41.82 Altered mental status, unspecified; I48.91 Unspecified atrial fibrillation; I10 Essential (primary) hypertension; J44.9 Chronic obstructive pulmonary disease, unspecified; M19.90 Unspecified osteoarthritis, unspecified site; G89.29 Other chronic pain; Z86.14 Personal history of Methicillin resistant Staphylococcus aureus infection; Z85.3 Personal history of malignant neoplasm of breast; Z90.710 Acquired absence of both cervix and uterus; Z60.2 Problems related to living alone; Z88.0 Allergy status to penicillin; Z88.5 Allergy status to narcotic agent; Z79.899 Other long term (current) drug therapy; W18.39XA Other fall on same level, initial encounter; Y93.89 Activity, other specified; Y92.89 Other specified places as the place of occurrence of the external cause; Y99.8 Other external cause status
CPT/HCPCS: 36415; 70450; 71045; 80053; 80320; 81001; 82948; 83880; 84484; 85025; 85610; 87088; 93005; 96360; 99284; J7030; 96361

== ENCOUNTER 2019-12-08 12:48 | Emergency (ER) | payer MEDICARE, MEDICAID ==
[~2019-12-08] VITALS: Ht 157.5 cm; Wt 40.9 kg
[2019-12-08] MEDS ORDERED: normal saline 1000ml 1,000 ML IV ONE (13:15)
[2019-12-08 13:54] LABS: BASOPHILS % (AUTO) 0.2 % (0-1); EOSINOPHILS # (AUTO) 0.1 X10'3 (0-0.9); HEMATOCRIT 28.9 % (35.0-45.0); HEMOGLOBIN 9.5 g/dl (12.0-16.0); LYMPHOCYTES # (AUTO) 0.3 X10'3 (1.1-4.8); LYMPHOCYTES % (AUTO) 9.6 % (21-51); MEAN CORPUSCULAR HEMOGLOBIN 26.5 PG (27.0-31.0); MEAN CORPUSCULAR HGB CONC 32.9 g/dL (33.0-36.5); MEAN CORPUSCULAR VOLUME 80.4 FL (78-98); MEAN PLATELET VOLUME 6.9 FL (7.4-10.4); MONOCYTES # (AUTO) 0.5 X10'3 (0-0.9); NEUTROPHILS # (AUTO) 2.1 X10'3 (1.8-7.7); NEUTROPHILS % (AUTO) 72.2 % (42-75); PLATELET COUNT 397 X10'3 (140-440); RED BLOOD COUNT 3.59 X10'6 (4.20-5.60); RED CELL DISTRIBUTION WIDTH 15.3 % (11.5-14.5); WHITE BLOOD COUNT 2.9 X10'3 (4.5-11.0)
--- NOTE | 2019-12-08 14:00 | NUR ---
I TOOK CARE OF PATIENT ON 11/17/19 PATIENT DID NOT HAVE THE BEEFY RED OPEN AREAS WHICH ARE NOW MAINLY COVERING HER ARMS, LEGS, BUTTOCKS THAT RESEMBLE SECOND DEGREE CASTELLANO. BUTTOCKS ARE BLEEDING INTERMITTENTLY, PATIENT WAS DISCHARGE HOME ON 11/17/19 ON BACTRIM FOR A UTI. RELATIVES OF PATIENT LIVE IN HER HOME AND DO NOT ASSIST WITH ANY CARE PER DAUGHTER IN ROOM. PATIENT HAS FREQUENT FALLS AND STILL PUTS WOOD IN THE WOODSTOVE. DAUGHTER STATES THAT HER FINGER NAILS ARE DIRTY FROM [place]. I SUSPECT THAT THE PATIENT COMPLETED THE COURSE OF BACTRIM DESPITE HAVING HAD A POTENTIAL ALLERGIC REACTION. HER OPEN AREAS RESEMBLE SECOND DEGREE CASTELLANO BUT MAY BE THE AFTERMATH OF BLISTERING AND OR DIXON TULIO SYNDROME. INFORMED
[2019-12-08 14:08] LABS: ALANINE AMINOTRANSFERASE 30 U/L (12-78); ALBUMIN 2.7 G/DL (3.4-5.0); ALBUMIN/GLOBULIN RATIO 0.7 (1.1-1.5); ALKALINE PHOSPHATASE 89 IU/L (46-116); ANION GAP 11 (8-16); ASPARTATE AMINO TRANSFERASE 30 U/L (10-37); BILIRUBIN,TOTAL 0.4 MG/DL (0.1-1.0); BLOOD UREA NITROGEN 52 MG/DL (7-18); BUN/CREATININE RATIO 41.9 (6.6-38.0); CALCIUM 8.3 MG/DL (8.5-10.1); CHLORIDE 102 MMOL/L (99-107); CREATININE 1.24 MG/DL (0.40-0.90); GLUCOSE 81 MG/DL (70-104); POTASSIUM 3.7 MMOL/L (3.5-5.1); SODIUM 137 MMOL/L (135-145); TOTAL PROTEIN 6.6 G/DL (6.4-8.2); eGFR 41 ML/MIN
[2019-12-08 14:10] LABS: MAGNESIUM 2.2 MG/DL (1.5-2.4); TROPONIN I < 0.04 NG/ML (0.0-0.05)
[2019-12-08 14:19] LABS: PLATELET ESTIMATE NORMAL; TOTAL CELLS COUNTED 100
--- NOTE | 2019-12-08 14:46 | NUR ---
[facility] CALLED AND SAID PT HAS ALL SEVICES INCLUDING IN HOME NURSING AND WOUND CARE.
[2019-12-08] MEDS ORDERED: vancomycin/NS 1 GM ADD-VANTAGE 250 ML IV ONE (14:50)
[2019-12-08] MEDS: nystatin 500,000 unit/5ML UD oral suspension PO SCH ×2 (15:42→22:14)
[2019-12-08] MEDS ORDERED: NYST1000 PO (16:34)
--- NOTE | 2019-12-08 17:00 | NUR ---
PHOTOS TAKEN OF OPEN REDDENED BEEFY AREAS ON PATIENT: ABOUT 15 PHOTOS TAKEN, SHOWED TO
[2019-12-08] MEDS ORDERED: fentaNYL/PF 50MCG/1 ML 2ML syringe IV ONE (17:50)
[2019-12-08 18:59] LABS: CLARITY,URINE CLEAR (Clear); COLOR,URINE YELLOW (Yellow); GLUCOSE, URINE NEGATIVE (Neg); KETONES,URINE TRACE mg/dl (Neg); LEUKOCYTE ESTERASE ,URINE NEGATIVE (Neg); NITRITES, URINE NEGATIVE (Neg); OCCULT BLOOD,URINE NEGATIVE (Neg); PROTEIN,URINE NEGATIVE (Neg); UROBILINOGEN,URINE 0.2 E.U/dL (0.2-1.0)
[2019-12-08 19:00] LABS: UA COLLECTION TYPE FOLEY CATH
[2019-12-08] MEDS ORDERED: KETAMINE IV ONE (21:00)
[2019-12-08] MEDS ORDERED: NORMAL SALINE IV ONE (21:00)
--- NOTE | 2019-12-08 23:49 | NUR ---
PT RESTING AT THIS TIME. APPEARS TO BE COMFORTABLE. DAUGHTER AT BEDSIDE.
[2019-12-08] MEDS ORDERED: methylPREDNISolone sod succ 125mg/2ml vial IV ONE (23:55)
--- NOTE | 2019-12-09 02:00 | NUR ---
MILI LOWER EXTREMITIES WRAPPED WITH XEROFORM, GAUZE AND TE WRAP. PT TOLERATED WELL. PT SLEEPING.
[2019-12-09] MEDS ORDERED: fentaNYL/PF 50MCG/1 ML 2ML syringe IV ONE ×2 (03:15→08:20)
--- NOTE | 2019-12-09 03:29 | NUR ---
MILI ARMS AND LEGS COVERED WITH XEROFORM GAUZE, WRAPPED WITH KERLIX AND REINFORCED WITH TE WRAP. PT TOLERATED WELL. REPORTS PAIN WHEN MOVED. DR. MARIN ORDERED IV FENTYNL FOR PT.
[2019-12-09] MEDS ORDERED: diphenhydrAMINE 50 mg/ml inj IV ONE (03:35)
[2019-12-09] MEDS ORDERED: normal saline 1000ml 1,000 ML IV ONE (07:23)
[2019-12-09] MEDS ORDERED: vancomycin/NS 1 GM ADD-VANTAGE 250 ML X 1 DOSE IV ONE (07:30)
--- NOTE | 2019-12-09 08:00 | NUR ---
RECEIVED VO FOR FENTNYL 50MCG IV X1 FOR PT FROM DR. GONZALEZ.
--- NOTE | 2019-12-09 08:02 | NUR ---
[facility] CALLED FOR TRANSPORT. [facility] IS DOING A WEATHER CHECK
[2019-12-09] MEDS: nystatin 500,000 unit/5ML UD oral suspension PO SCH (08:15)
--- NOTE | 2019-12-09 08:20 | NUR ---
[facility] HAS DECLINED DUE TO WEATHER, [facility] WILL DO WEATHER CHECK WITH FIXED WING.
--- NOTE | 2019-12-09 08:33 | NUR ---
CALLED [facility] TO INFORM OF UPDATED ETA OF FIXED WING TO [facility] AT [id number].
[2019-12-09 09:26] VITALS: BP 95/57
== END 2019-12-09 10:45 | disposition short-term general hospital (02) ==
LOC: ER 12:49
DX: B37.0 Candidal stomatitis (principal); I48.91 Unspecified atrial fibrillation; I10 Essential (primary) hypertension; J44.9 Chronic obstructive pulmonary disease, unspecified; M19.90 Unspecified osteoarthritis, unspecified site; G89.29 Other chronic pain; Z90.710 Acquired absence of both cervix and uterus; Z98.890 Other specified postprocedural states; Z86.14 Personal history of Methicillin resistant Staphylococcus aureus infection; Z85.3 Personal history of malignant neoplasm of breast; Z88.0 Allergy status to penicillin; Z88.5 Allergy status to narcotic agent; Z79.899 Other long term (current) drug therapy
CPT/HCPCS: 36415; 71045; 80053; 81003; 83605; 83735; 84145; 84484; 85025; 87040; 87077; 87186; 96365; 96366; 96367; 96375; 96376; 99285; J1200; J2930; J3010; J3370; J7050